=== PATIENT | male | born 1945 | race Two or more races ===

== ENCOUNTER 2022-03-28 19:43 | Emergency (ER) | payer MEDICARE, OTHER ==
[~2022-03-28] VITALS: Ht 167.6 cm; Wt 83.5 kg
[2022-03-28] MEDS ORDERED: OXYCODONE/APAP 5-325 MG TABLET PO ONE (20:15)
--- NOTE | 2022-03-28 21:00 | NUR ---
administered 650mg of APAP after pt refused the percocet because it is too strong and pt requested APAP instead. Asked EDMD if the med ordered can be switched out for APAP per pt request, EDMD agreed and told me to give pt APAP.
[2022-03-28] MEDS ORDERED: ACETAMINOPHEN 325 MG TABLET ONE (21:18)
--- NOTE | 2022-03-28 21:20 | NUR ---
Shoulder immobilizer applied to pts Lt arm per EDMD order. Application was done without difficulty or incident, pt tolerated well. No complaints of pain. Arm was moved minimally. Pt has good CMS cap refill <3sec. Pt aaox4, has good color and appearance. Totally independent, VSS, PE WNL, NAD. No s/sx of distress present.
[2022-03-28] MEDS ORDERED: OXYC-128 PO (21:27)
--- NOTE | 2022-03-28 21:38 | NUR ---
Pt set to be DCed home with son, awaiting xr disk. DC instructions given, pt confirmed understanding. VSS
--- NOTE | 2022-03-29 00:55 | NUR ---
Pt and son given DC instuctions and they confirmed understanding. Pt has good color and temp, VSS, PE WNL, NAD, complaining of only mild pain. Pt Dced home and amb out of dept with steady gait.
[2022-03-29 00:58] VITALS: BP 125/75
== END 2022-03-28 22:55 | disposition home or self-care (01) ==
LOC: ER 20:03
DX: S42.292A Other displaced fracture of upper end of left humerus, initial encounter for closed fracture (principal); W18.30XA Fall on same level, unspecified, initial encounter; Y93.H2 Activity, gardening and landscaping; Y92.017 Garden or yard in single-family (private) house as the place of occurrence of the external cause; E11.9 Type 2 diabetes mellitus without complications; C61 Malignant neoplasm of prostate
CPT/HCPCS: 73030; A4663

== ENCOUNTER 2022-08-17 15:51 | Emergency (ER) | payer MEDICARE, OTHER ==
[~2022-08-17] VITALS: Ht 170.2 cm; Wt 79.8 kg
[~2022-08-17 15:51] MED LIST: OXYC-128 PO
[2022-08-17] MEDS ORDERED: IV NORMAL SALINE 1000 ML BAG IV ONE (17:45)
[2022-08-17 17:48] LABS: HEMATOCRIT 39.8 % (36.7-47.1); MEAN CORPUSCULAR HEMOGLOBIN 31.2 uug (23.8-33.4); MEAN CORPUSCULAR VOLUME 91.8 fL (73.0-96.2); PLATELET COUNT (AUTO) 176 K/uL (152-348)
[2022-08-17 18:03] LABS: CARBON DIOXIDE 23 mmol/L (21-32); CHLORIDE 102 mmol/L (98-107); CREATININE 1.4 mg/dL (0.6-1.3); GLUCOSE 188 mg/dL (74-106); POTASSIUM 4.2 mmol/L (3.5-5.1); UREA NITROGEN, BLOOD 27 mg/dL (7-18)
[2022-08-17] MEDS ORDERED: LOSA100T31 PO (18:28)
[2022-08-17] MEDS ORDERED: AMLO-212 PO (18:28)
[2022-08-17] MEDS ORDERED: metoprolol PO (18:28)
[2022-08-17] MEDS ORDERED: FINA5TAB11 PO (18:28)
[2022-08-17] MEDS ORDERED: ATOR10TA PO (18:28)
[2022-08-17] MEDS ORDERED: SPIR25TA6 PO (18:28)
[2022-08-17] MEDS ORDERED: ASPI81TA31 PO (18:28)
[2022-08-17] MEDS ORDERED: EMPA25TA PO (18:28)
[2022-08-17] MEDS ORDERED: METF-494 PO (18:28)
[2022-08-17] MEDS ORDERED: PRED2.5T PO (18:28)
[2022-08-17] MEDS ORDERED: ONDANSETRON 4 MG/2 ML VIAL IV ONE (19:00)
[2022-08-17] MEDS ORDERED: HYDROMORPHONE 1 MG/1 ML DISP.SYRIN IV ONE (19:00)
--- NOTE | 2022-08-17 19:05 | NUR ---
Recieved report from [facility].
[2022-08-17] MEDS ORDERED: HYDROMORPHONE 1 MG/1 ML DISP.SYRIN ONE (19:22)
[2022-08-17] MEDS ORDERED: ONDANSETRON 4 MG/2 ML VIAL ONE (19:22)
--- NOTE | 2022-08-17 19:27 | NUR ---
Covid test taken to lab.
[2022-08-17 19:32] LABS: BILIRUBIN,DIRECT 0.3 mg/dL (0.0-0.2); BILIRUBIN,TOTAL 1.2 mg/dL (0.2-1.0); TOTAL PROTEIN, SERUM 7.8 g/dL (6.4-8.2)
--- NOTE | 2022-08-17 20:30 | NUR ---
Patient does not wish to proceed with medical care recommended by Dr. Peralta. Patient given information related to possible complications, up to and including , which could occur as a result of leaving the hospital at this time. Patient verbalizes understanding of risks involved due to leaving against medical advice. Patient has signed AMA form. A/O x4. NAD noted. Left with son and on wheelchair. All belongings with patient and family.
[2022-08-17 20:50] VITALS: BP 140/75
== END 2022-08-17 20:30 | disposition left against medical advice (07) ==
LOC: ER 15:51
DX: R55 Syncope and collapse (principal); S72.012A Unspecified intracapsular fracture of left femur, initial encounter for closed fracture; S50.02XA Contusion of left elbow, initial encounter; W19.XXXA Unspecified fall, initial encounter; Y92.019 Unspecified place in single-family (private) house as the place of occurrence of the external cause; Z85.46 Personal history of malignant neoplasm of prostate; I10 Essential (primary) hypertension; E11.9 Type 2 diabetes mellitus without complications; E86.0 Dehydration; Z53.29 Procedure and treatment not carried out because of patient's decision for other reasons
CPT/HCPCS: 99285; 70450; 96374; 71045; 96361; 96375; 87426; 80076; 80048; 83735; 85025; 85610; 36415; 93005; 72040; 73080; 73502; 72125; J2405; J1170; A4663